=== PATIENT | female | born 1970 | race Caucasian/White ===

== ENCOUNTER 2017-07-22 13:01 | Emergency (ER) | payer BC ==
[~2017-07-22] VITALS: Ht 165.1 cm; Wt 92.0 kg
[~2017-07-22 13:01] MED LIST: CELEXA PO; FLUOXETINE HCL20 MG PO; FUROSEMIDE40 MG PO; HYDROCHLOROTHIA25 MG PO; KLOR-CON M2020 MEQ PO; LOVASTATIN20 MG PO; METFORMIN HCL1000 MG PO; PERCOCET 5/31 TABLET PO; PHENTERMINE H37.5 MG PO; PHENTERMINE HCL15 MG PO; SOMA350 MG PO; SYNTHROID175 MCG PO; SYNTHROID200 MCG PO; TOPAMAX100 MG PO; VOLTAREN75 MG PO
[2017-07-22 15:15] LABS: ALBUMIN 4.3 g/dL (3.2-4.8); CHLORIDE 98 mEq/L (99-109); POTASSIUM 3.1 mEq/L (3.7-5.4); SODIUM 137 mEq/L (136-147)
[2017-07-22 15:16] LABS: APPEARANCE CLOUDY ((CLEAR)); BILIRUBIN NEGATIVE; BLOOD NEGATIVE; COLOR YELLOW ((YELLOW)); GLUCOSE (STRIP) NEGATIVE; KETONES NEGATIVE; LEUKOCYTES TRACE; NITRITE NEGATIVE; PROTEIN (STRIP) 30; SPECIFIC GRAVITY 1.032 (1.000-1.030); UROBILINOGEN 0.2 MG/DL (0.2-1.0)
[2017-07-22 15:18] LABS: GLUCOSE 145 mg/dL (70-99); TOTAL PROTEIN 6.9 g/dL (6.4-8.3)
[2017-07-22 15:19] LABS: TOTAL BILIRUBIN 0.5 mg/dL (0.0-1.0)
[2017-07-22 15:21] LABS: ALKALINE PHOSPHATASE 105 IU/L (3-129); CREATININE 0.8 mg/dL (0.6-1.3); GFR ESTIMATE (CALCULATED) > 59 mL/min/
[2017-07-22 15:22] LABS: UREA NITROGEN (BUN) 14 mg/dL (9-23)
[2017-07-22 15:23] LABS: AST (GOT) 46 IU/L (2-34)
[2017-07-22 15:24] LABS: ALT (GPT) 40 IU/L (3-49)
[2017-07-22 15:25] LABS: LIPASE 19 U/L (1.0-51.0)
[2017-07-22 15:34] LABS: EPITHELIAL CELLS 3+ /HPF; MUCUS NONE SEEN /LPF
[2017-07-22 15:36] LABS: BACTERIA 1+ /HPF; RED BLOOD CELLS NONE SEEN /HPF (0-5); WHITE BLOOD CELLS RARE /HPF (0-5)
[2017-07-22] MEDS ORDERED: LEVEMIR100 UNIT/2 SC (17:00)
[2017-07-22] MEDS ORDERED: EASY COMFORT I1 EAC1 MC (17:00)
[2017-07-22] MEDS ORDERED: BASAGLAR K100 UNIT/1 SC (17:49)
[2017-07-22 17:51] VITALS: BP 144/84
== END 2017-07-22 17:53 | disposition home or self-care (01) ==
LOC: EME 13:01
PROVIDERS: Physician Assistant
DX: E11.65 Type 2 diabetes mellitus with hyperglycemia (principal); Z79.84 Long term (current) use of oral hypoglycemic drugs; E03.9 Hypothyroidism, unspecified; F17.200 Nicotine dependence, unspecified, uncomplicated; F32.9 Major depressive disorder, single episode, unspecified; F41.9 Anxiety disorder, unspecified
CPT/HCPCS: 80053; 81003; 82948; 83690; 99281; 99284